=== PATIENT | male | born 1955 | race Caucasian/White ===

== ENCOUNTER 2017-05-01 14:59 | Emergency (ER) | payer BC ==
[~2017-05-01] VITALS: Ht 195.6 cm; Wt 117.5 kg
[2017-05-01 15:02] VITALS: BP 147/76; PULSE 76; RESP 16; TEMP 98.3; O2SAT 94
[2017-05-01] MEDS ORDERED: ASPI-516 CHEW (15:11)
[2017-05-01] MEDS ORDERED: LEXA5TAB PO (15:11)
[2017-05-01] MEDS ORDERED: NAME5TAB2 PO (15:11)
[2017-05-01] MEDS ORDERED: ARIC23TA PO (15:11)
--- NOTE | 2017-05-01 15:52 | PD ---
HPI Chief Complaint: Laceration/Skin Injury Time Seen by Provider: 15:20 Travel History International Travel<30 days: No Contact w/Intl Traveler<30days: No Traveled to known affect area: No History of Present Illness HPI 61-year-old male here for evaluation of laceration to his left toe and right knee pain. Patient reports he stubbed his toe on a concrete curb and twisted his right knee. Injury occurred prior to arrival. Patient did not fall to the ground. He denies any other injuries. He reports the pain as throbbing and worse with movement and relieved with rest. Tetanus immunization is up-to-date. PFSH Past Medical History Hx Anticoagulant Therapy: Yes (ASA) Dementia: Yes Past Surgical History Cholecystectomy: Yes Social History Alcohol Use: Yes Tobacco Use: No Substance Use: No Allergies-Medications (Allergen,Severity, Reaction): Coded Allergies: Penicillins (Verified Adverse Reaction, Intermediate, GI UPSET, 05/01/17) Reported Meds & Prescriptions Reported Meds & Active Scripts Active Reported Namenda (Memantine) 5 Mg Tab Unknown Dose PO BID Aspirin 81 Mg Chew 81 Mg CHEW DAILY Lexapro (Escitalopram Oxalate) 5 Mg Tab Unknown Dose PO DAILY Aricept (Donepezil) 23 Mg Tab Unknown Dose PO HS Do not split, crushed or chewed. Review of Systems Except as stated in HPI: all other systems reviewed are Neg Physical Exam Narrative GENERAL: Well-nourished, well-developed patient. SKIN: Focused skin assessment warm/dry. HEAD: Normocephalic. EYES: No scleral icterus. No injection or drainage. NECK: Supple, trachea midline. No JVD or lymphadenopathy. CARDIOVASCULAR: Regular rate and rhythm without murmurs, gallops, or rubs. RESPIRATORY: Breath sounds equal bilaterally. No accessory muscle use. GASTROINTESTINAL: Abdomen soft, non-tender, nondistended. MUSCULOSKELETAL: No cyanosis, or edema. Right lower extremity; notable swelling to the anterior aspect of the knee. No deformity. Joint is stable. Moderate Pain with full flexion. 2+ pulses. Brisk cap refill. LEFT foot; 1.5 cm laceration to the distal/medial aspect of the great toe. No foreign body visualized. No bony tenderness. No deformity. Brisk cap refill. Data Data Last Documented VS Vital Signs Date Time Temp Pulse Resp B/P (MAP) Pulse Ox O2 Delivery O2 Flow Rate FiO2 05/01/17 15:02 98.3 76 16 147/76 (99) 94 Orders Orders Knee, Complete (4vws) (05/01/17 ) [facility] Medical Decision Making Medical Screen Exam Complete: Yes Emergency Medical Condition: Yes Differential Diagnosis Toe laceration, right knee sprain, fracture Narrative Course 61-year-old male here with left great toe laceration and right knee pain. Patient stubbed left toe on concrete curb causing laceration. He twisted the right knee but did not fall to the ground. He has no bony tenderness of the left foot do not suspect fracture. Right knee is moderately swollen and patient has pain with full flexion. He reports he has previous injury and meniscal tear to the knee and has chronic pain in the knee. X-ray right knee: No fracture Diagnosis Primary Impression: Laceration of left great toe Qualified Codes: S91.112A - Laceration without foreign body of left great toe without damage to nail, initial encounter Additional Impression: Knee sprain Qualified Codes: S83.90XA - Sprain of unspecified site of unspecified knee, initial encounter Referrals: Primary Care Physician Additional Instructions: Take [id number] Motrin or Tylenol as needed for pain. Do not submerge the wound in water. He may begin showering tomorrow. Washing area daily with soap and water and apply clean dry dressing. Sutures need to be removed in 7-10 days. Disposition: 01 DISCHARGE HOME Condition: Stable Reba Kebede May 01, 2017 15:52
--- NOTE | 2017-05-01 16:09 | RADRPT ---
EXAM DATE/TIME: 05/01/2017 15:46 [facility] COMPARISON: No previous studies available for comparison. INDICATIONS : Fell on curb today, has right knee pain and swelling, pain worse lateral side of knee MEDICAL HISTORY : None. SURGICAL HISTORY : knee surgery ENCOUNTER: Initial ACUITY: 1 day PAIN SCORE: 8/10 LOCATION: Right knee FINDINGS: There does appear to be a moderate right knee joint effusion but I don't see a fracture or subluxatio n. There is moderate to severe medial and patellofemoral and moderate lateral compartment osteoarthritis . CONCLUSION: Osteoarthritis and a nonspecific joint effusion. No fracture demonstrated. Roger Phillips MD on May 01, 2017 at 16:07 Board Certified Radiologist. This report was verified electronically.
== END 2017-05-01 16:37 | disposition home or self-care (01) ==
LOC: PHEFT 14:59
DX: S91.112A Laceration without foreign body of left great toe without damage to nail, initial encounter (principal); S83.91XA Sprain of unspecified site of right knee, initial encounter; X58.XXXA Exposure to other specified factors, initial encounter; F03.90 Unspecified dementia, unspecified severity, without behavioral disturbance, psychotic disturbance, mood disturbance, and anxiety; Z88.0 Allergy status to penicillin; Z79.899 Other long term (current) drug therapy
CPT/HCPCS: 73564; 99283

== ENCOUNTER 2017-05-11 07:42 | Emergency (ER) | payer BC ==
[~2017-05-11] VITALS: Ht 195.6 cm; Wt 117.5 kg
[~2017-05-11 07:42] MED LIST: ARIC23TA PO; ASPI-516 CHEW; LEXA5TAB PO; NAME5TAB2 PO
[2017-05-11 07:45] VITALS: BP 156/74; PULSE 62; RESP 18; TEMP 97.7
--- NOTE | 2017-05-11 07:55 | PD ---
HPI Chief Complaint: Wound/Suture/Staple Re-Check Time Seen by Provider: 07:49 Travel History International Travel<30 days: No Contact w/Intl Traveler<30days: No Traveled to known affect area: No History of Present Illness HPI This patient was back for suture removal. He had laceration of the left great toe 10 days ago and had 5 sutures placed. He is walking on it without pain and it doesn't drain anything. No fever PFSH Past Medical History Hx Anticoagulant Therapy: Yes (ASA) Dementia: Yes Past Surgical History Cholecystectomy: Yes Social History Alcohol Use: Yes Tobacco Use: No Substance Use: No Allergies-Medications (Allergen,Severity, Reaction): Coded Allergies: Penicillins (Verified Adverse Reaction, Intermediate, GI UPSET, 05/11/17) Reported Meds & Prescriptions Reported Meds & Active Scripts Active Reported Namenda (Memantine) 5 Mg Tab Unknown Dose PO BID Aspirin 81 Mg Chew 81 Mg CHEW DAILY Lexapro (Escitalopram Oxalate) 5 Mg Tab Unknown Dose PO DAILY Aricept (Donepezil) 23 Mg Tab Unknown Dose PO HS Do not split, crushed or chewed. Review of Systems General / Constitutional: No: Fever HENT: No: Headaches Cardiovascular: No: Chest Pain or Discomfort Respiratory: No: Cough Physical Exam Narrative Psych: Normal mood and affect. Normal insight and judgment. SKIN: Focused skin assessment reveals no rash or ulcers. Skin is warm and dry. Palpation shows no induration or nodules. Left great toe: [address] There is some residual ecchymosis. There is no tenderness or drainage or sign of infection or dehiscence Data Data Last Documented VS Vital Signs Date Time Temp Pulse Resp B/P (MAP) Pulse Ox O2 Delivery O2 Flow Rate FiO2 05/11/17 07:45 97.7 62 18 156/74 (101) MDM Medical Decision Making Medical Screen Exam Complete: Yes Emergency Medical Condition: Yes Medical Record Reviewed: Yes Differential Diagnosis Laceration repair, suture removal, infection Narrative Course I have reviewed the patient's electronic medical record. Sutures removed. Wound care discussed. Diagnosis Primary Impression: Visit for suture removal Additional Instructions: The patient was advised to follow up with their physician and return if they worsen. Med/Other Pt SpecificInfo: Other Disposition: 01 DISCHARGE HOME Condition: Stable Fred Juarez MD May 11, 2017 07:55
== END 2017-05-11 08:12 | disposition home or self-care (01) ==
LOC: PHED 07:42
DX: Z48.02 Encounter for removal of sutures (principal); Z88.0 Allergy status to penicillin; F03.90 Unspecified dementia, unspecified severity, without behavioral disturbance, psychotic disturbance, mood disturbance, and anxiety; Z79.899 Other long term (current) drug therapy
CPT/HCPCS: 99281

== ENCOUNTER → 2017-07-27 | Outpatient (CLI) | payer BC, MEDICARE ==
[~2017-07-27] MED LIST changes: +ASPI81CH6 CHEW; +CPMMACHINE; +HYDR-3288 PO; +LEVO25TA4 PO; +LEXA20TA PO; +MEMA28CA PO; +WALKER WHEELS/F1 MIS
== END ==
LOC: CPRE 09:53
PROVIDERS: ATTEND Orthopaedic Surgery Sports Medicine
DX: M17.11 Unilateral primary osteoarthritis, right knee (principal)

== ENCOUNTER 2017-08-13 10:30 | Inpatient (IN) | payer BC, MEDICARE ==
[~2017-08-13] VITALS: Ht 195.6 cm; Wt 115.7 kg
[~2017-08-13 10:30] MED LIST changes: -ASPI81CH6 CHEW; -CPMMACHINE; -HYDR-3288 PO; -LEXA5TAB PO; -NAME5TAB2 PO; -WALKER WHEELS/F1 MIS
[2017-08-13] MEDS ORDERED: DEXAMETHASONE SOD PHOS 20 MG/5 ML VIAL ONE (11:06)
[2017-08-13] MEDS ORDERED: ceFAZolin 2 GM PREMIX 50 ML ONE (11:06)
[2017-08-13 11:35] VITALS: PULSE 62
[2017-08-13] MEDS ORDERED: FAT EMULSION 20% INJ 0 ML ONE (11:42)
[2017-08-13] MEDS ORDERED: VANCOMYCIN 1000 MG/NS 250 ML (for <70 kg) IV SCH ×2 (11:45)
[2017-08-13] MEDS ORDERED: POVIDONE IODINE 7.5% SCRUB 118 ML BOTTLE TOPICAL SCH (11:45)
[2017-08-13] MEDS ORDERED: CHLORHEXIDINE GLUCONATE 4% SOLN 120 ML BTL TOPICAL SCH (11:45)
[2017-08-13] MEDS ORDERED: MIDAZOLAM HCL 2 MG/2 ML VIAL ONE (11:54)
[2017-08-13] MEDS ORDERED: BUPIVACAINE LIPOSOME PF 1.3% 20 ML VIAL ONE (11:55)
[2017-08-13] MEDS ORDERED: SODIUM CHLORIDE 0.9% INJ 100 ML ONE (11:59)
[2017-08-13] MEDS ORDERED: SODIUM CHLORIDE 0.9% IV SCH (12:00)
[2017-08-13] MEDS ORDERED: ROPIVACAINE PERI-ARTICULAR INJECTION. P-ARTICULR SCH ×5 (12:00)
[2017-08-13] MEDS ORDERED: TRANEXAMIC ACID IV SCH (12:00)
[2017-08-13] MEDS ORDERED: CHLORHEXIDINE GLUCONATE 2 % 1 PACK (2 CLOTHS) TOPICAL PRN (12:00)
[2017-08-13] MEDS ORDERED: LACTATED RINGER'S 1000 ML INJ 1,000 ML IV ONE (12:00)
[2017-08-13] MEDS ORDERED: LIDOCAINE HCL 1% PF 5 ML SYRINGE OTHER ONE (12:00)
[2017-08-13] MEDS ORDERED: LACTATED RINGER'S 1000 ML IV PRN (12:00)
[2017-08-13] MEDS ORDERED: METOPROLOL TARTRATE 25 MG TAB PO PRN (12:00)
[2017-08-13] MEDS ORDERED: CLINDAMYCIN 900 MG/NS 100 ML IV SCH ×2 (12:00)
[2017-08-13] MEDS ORDERED: NEOSTIGMINE 5 MG/5 ML SYRINGE IV PUSH ONE (12:00)
[2017-08-13] MEDS ORDERED: ePHEDrine/NS 25 MG/5 ML SYRINGE IV ONE (12:00)
[2017-08-13] MEDS ORDERED: DEXAMETHASONE SOD PHOS 20 MG/5 ML VIAL IV ONE (12:00)
[2017-08-13] MEDS ORDERED: DEXAMETHASONE SOD PHOS 4 MG/ML VIAL IV ONE (12:00)
[2017-08-13] MEDS ORDERED: POVIDONE IODINE 5% (ANTISEPSIS KIT) 4 APPLICATIONS EACH NARE PRN (12:00)
[2017-08-13] MEDS ORDERED: TRANEXAMIC PERI-ARTICULAR 3,000 MG/NS 100 ML P-ARTICULR SCH ×2 (12:00)
[2017-08-13] MEDS ORDERED: ROCURONIUM INJ 50 MG/5 ML SYRINGE IV PUSH ONE (12:00)
[2017-08-13] MEDS ORDERED: SODIUM CHLORID 0.9% 500 ML IV PRN (12:00)
[2017-08-13] MEDS ORDERED: PROPOFOL 200 MG/20 ML AMP IV ONE (12:00)
[2017-08-13] MEDS ORDERED: ONDANSETRON HCL 4 MG/2 ML VIAL IV PUSH ONE (12:00)
[2017-08-13] MEDS ORDERED: GLYCOPYRROLATE 1 MG/5 ML SYRINGE IV PUSH ONE (12:00)
[2017-08-13] MEDS ORDERED: GENTAMICIN SULFATE 80 MG/2 ML VIAL ONE (12:20)
[2017-08-13] MEDS ORDERED: VANCOMYCIN 1 GM/200 ML INJ 200 ML IV SCH (12:30)
[2017-08-13] MEDS ORDERED: ASPI81CH6 CHEW (12:39)
[2017-08-13] MEDS ORDERED: HYDR-3288 PO (12:39)
[2017-08-13] MEDS ORDERED: ceFAZolin 2 GM PREMIX 50 ML IV SCH (12:45)
[2017-08-13] MEDS ORDERED: DEXAMETHASONE SOD PHOS 20 MG/5 ML VIAL IV SCH (12:45)
[2017-08-13] MEDS ORDERED: ONDANSETRON HCL 4 MG/2 ML VIAL IVP PRN (13:00)
[2017-08-13] MEDS ORDERED: Post-op Orders (for Pharmacy) XX ONE (13:00)
[2017-08-13] MEDS ORDERED: ACETAMINOPHEN/HYDROcodone 325 MG/7.5 MG TAB PO PRN (13:00)
[2017-08-13] MEDS ORDERED: MORPHINE SULFATE 4 MG/ML INJ IV PUSH PRN (13:15)
[2017-08-13] MEDS ORDERED: diphenhydrAMINE HCL 50 MG/ML VIAL IV PUSH PRN (13:30)
[2017-08-13] MEDS ORDERED: BISACODYL 10 MG SUPP RECTAL PRN (13:30)
--- NOTE | 2017-08-13 13:34 | PD.CONS ---
[facility] By Dr Wasserman Reason for Consult medical management Primary Care Physician Rodney Okeefe MD Diagnoses: (1) Primary localized osteoarthrosis, lower leg History of Present Illness 61 yo male with PMH of hypothyroidism , OA, dementia, depression. Patient came to same day surgery for Right TKA by Dr Wasserman . The patient was seen in PACU after the surgery . Says pain is controlled. No fever or chills. No n/v/d/c. Review of Systems Except as stated in HPI: all other systems reviewed are Neg Past Family Social History Allergies: Coded Allergies: Penicillins (Verified Adverse Reaction, Intermediate, GI UPSET, 08/13/17) Past Medical History hypothyroidism , OA, dementia, depression Past Surgical History Cholecystectomy Previous right knee surgeries Reported Medications Reported Meds & Active Scripts Active Aspirin Low Dose (Aspirin) 81 Mg Chew 81 Mg CHEW BID 30 Days [place] (Hydrocodone-Acetaminophen) 7.5-325 mg Tab 1-2 Tab PO Q6H PRN Reported Levothyroxine (Levothyroxine Sodium) 25 Mcg Tab 25 Mcg PO DAILY Lexapro (Escitalopram Oxalate) 20 Mg Tab 20 Mg PO DAILY Namenda Xr (Memantine) 28 Mg Caper 28 Mg PO DAILY Aspirin 81 Mg Chew 81 Mg CHEW DAILY Aricept (Donepezil) 23 Mg Tab 23 Mg PO HS Do not split, crushed or chewed. Family History parents with h/o lung cancer, tobaccoism -father Social History EtOH use 4-6 beers daily Denies tobacco or illicit drug use Physical Exam Vital Signs Vital Signs Date Time Temp Pulse Resp B/P (MAP) Pulse Ox O2 Delivery O2 Flow Rate FiO2 08/13/17 11:35 98 Nasal Cannula 2 08/13/17 11:35 62 08/13/17 11:07 97.9 68 18 146/77 (100) 97 Physical Exam GENERAL: This is a well-nourished, well-developed patient, in no apparent distress. SKIN: No rashes, ecchymoses or lesions. Cool and dry. HEAD: Atraumatic. Normocephalic. No temporal or scalp tenderness. EYES: Pupils equal round and reactive. Extraocular motions intact. No scleral icterus. No injection or drainage. ENT: Nose without bleeding, purulent drainage or septal hematoma. Throat without erythema, tonsillar hypertrophy or exudate. Uvula midline. Airway patent. NECK: Trachea midline. No JVD or lymphadenopathy. Supple, nontender, no meningeal signs. CARDIOVASCULAR: Regular rate and rhythm without murmurs, gallops, or rubs. RESPIRATORY: Clear to auscultation. Breath sounds equal bilaterally. No wheezes , rales, or rhonchi. GASTROINTESTINAL: Abdomen soft, non-tender, nondistended. No hepato-splenomegaly , or palpable masses. No guarding. MUSCULOSKELETAL: S/p right knee surgery. Extremities without clubbing, cyanosis , or edema. NEUROLOGICAL: Awake and alert. Cranial nerves II through XII intact. Motor and sensory grossly within normal limits. Five out of 5 muscle strength in all muscle groups. Normal speech. Imaging Last Impressions Knee X-Ray 08/13/17 1237 Signed Impressions: Service Date/Time: Sunday, August 13, 2017 14:58 - CONCLUSION: Status post right total knee arthroplasty. Augustus Nieto MD Assessment and Plan Assessment and Plan 61 yo male with PMH of hypothyroidism , OA, dementia, depression OA right knee S/P right total knee replacement by Dr Wasserman Management per ortho Alcohol use. Patient says he has never had withdrawl symptoms and doesn;t want any meds 4-6 beers daily last drink on Wednesday. Not with withdrawals at this amy Monitor.for withdrawals Chronic medical problems appears stable at this time, monitor. Restart home meds as appropriate. H/o hypothyroidism , dementia, depression DVT ppx scd/teds. chemical ppx per surgeon Thank you for this consultation Discussed Condition With patient, nurse Problem Qualifiers (1) Primary localized osteoarthrosis, lower leg: Qualified Codes: M17.11 - Unilateral primary osteoarthritis, right knee Jaimie Crocker MD Aug 13, 2017 13:34
[2017-08-13] MEDS ORDERED: DO NOT ADM ANY ANTICOAGULANT DRUGS PRN (14:32)
[2017-08-13 14:36] VITALS: PULSE 98
[2017-08-13] MEDS: SODIUM CHLOR 0.9% 1000 ML INJ 1,000 ML IV SCH ×2 (14:45→21:06)
[2017-08-13] MEDS ORDERED: MORPHINE SULFATE 4 MG/ML INJ ONE (14:45)
[2017-08-13] MEDS ORDERED: *morphine SULFATE 10 MG/ML PERIprocedure ONLY ONE (15:40)
--- NOTE | 2017-08-13 15:58 | RADRPT ---
EXAM DATE/TIME: 08/13/2017 14:58 [facility] COMPARISON: KNEE RIGHT COMPLETE (4VWS), May 01, 2017, 15:46. INDICATIONS : Post right total knee. MEDICAL HISTORY : None. SURGICAL HISTORY : Right total knee ENCOUNTER: Initial ACUITY: 1 day PAIN SCORE: 2/10 LOCATION: Right knee FINDINGS: Right total knee arthroplasty is noted. Soft tissue emphysema is present as well as a small air-fluid level in suprapatellar region. No fractures. CONCLUSION: Status post right total knee arthroplasty. Augustus Nieto MD on August 13, 2017 at 15:57 Board Certified Radiologist. This report was verified electronically.
--- NOTE | 2017-08-13 16:22 | HHI.DCPOC ---
Discharge Care Plan Diagnosis: (1) Primary localized osteoarthrosis, lower leg Your Health Problems Are: Difficulty with ADL Goals to Promote Your Health * To prevent worsening of your condition and complications * To maintain your health at the optimal level Directions to Meet Your Goals Take your medications as prescribed Follow your dietary instruction Follow activity as directed Keep your appointments as scheduled Take your immunizations and boosters as scheduled If your symptoms worsen call your PCP, if no PCP go to Urgent Care Center or Emergency Room Smoking is Dangerous to Your Health. Avoid second hand smoke Call the 24-hour hour crisis hotline for domestic abuse at Justin Willis Aug 13, 2017 16:22
--- NOTE | 2017-08-13 16:22 | HHI.FF ---
Face to Face Verification Diagnosis: (1) Primary localized osteoarthrosis, lower leg Physical Therapy Gait training, Safety evaluation, Transfer training, bed to chair Knee: Total knee, Protocol: Right, Full weight bearing Right LE Weight Bearing: WB as tolerated Nursing RN: 3 days/week x 2 weeks Nursing: Dressing changes Dressing Changes: Daily dressing change I have seen patient Lewis Garcia on 08/13/17. My clinical findings support the need for the requested home health care services because: Limited ability to care for self High risk of falls I certify that my clinical findings support that this patient is homebound because: Post-op weakness Unsteady gait/balance Justin Willis Aug 13, 2017 16:22
[2017-08-13] MEDS ORDERED: CPMMACHINE (16:23)
[2017-08-13] MEDS ORDERED: WALKER WHEELS/F1 MIS (16:23)
--- NOTE | 2017-08-13 16:24 | PD.ORT.PN ---
Objective Vitals Vital Signs Date Time Temp Pulse Resp B/P (MAP) Pulse Ox O2 Delivery O2 Flow Rate FiO2 08/13/17 11:35 98 Nasal Cannula 2 08/13/17 11:35 62 08/13/17 11:07 97.9 68 18 146/77 (100) 97 I/O 08/12/17 08/12/17 08/12/17 08/13/17 08/13/17 08/13/17 07:00 15:00 23:00 07:00 15:00 23:00 Intake Total 1700 ml Output Total 350 ml Balance 1350 ml Intake IV Total 1700 ml Output Urine Total 100 ml Estimated Blood Loss 250 ml Imaging Last 24 hours Impressions Knee X-Ray 08/13/17 1237 Signed Impressions: Service Date/Time: Sunday, August 13, 2017 14:58 - CONCLUSION: Status post right total knee arthroplasty. Augustus Nieto MD Assessment & Plan Ortho Post Op Day #: 0 Problem List: Assessment and Plan s/p R TKA POD#0 wbat ok to maintain dressing unless saturated lovenox, d/c on [id number] d/c planning home vs snf rx in chart f/up dr. tee 2 weeks Justin Willis Aug 13, 2017 16:24
[2017-08-13 17:05] VITALS: BP 107/61; PULSE 79; RESP 18; TEMP 97.5; O2SAT 94
[2017-08-13] MEDS: ACETAMINOPHEN/HYDROcodone 325 MG/7.5 MG TAB PO PRN ×2 (18:38→23:57)
--- NOTE | 2017-08-13 19:10 | MP ---
cc: Justin Wasserman MD, Jeffrey W MD DATE OF OPERATION: 08/13/2017 PREOPERATIVE DIAGNOSIS: Right knee osteoarthritis. POSTOPERATIVE DIAGNOSIS: Right knee osteoarthritis. PROCEDURE: Right total knee arthroplasty. SURGEON: Liborio Wasserman MD ANTIQUE CLOCK REPAIRER: DARRIAN Robin ANESTHESIA: General with a femoral nerve adductor canal block. ESTIMATED BLOOD LOSS: 250 mL. TOURNIQUET TIME: 32 minutes at 250 mmHg. COMPLICATIONS: None. IMPLANTS USED: DePuy Attune size 9 posterior stabilized femoral component, size 9 rotating platform tibial baseplate, size 6 mm polyethylene tibial insert, size 41 patella. INDICATIONS: This patient is a 61-year-old with history of severe end-stage osteoarthritis involving the right knee. He has severe disabling pain with standing, walking, ambulation, weight bearing activities and severe pain at rest. His pain has been progressive and does interfere with activities of daily living. He has failed greater than 3 months of nonoperative conservative treatment to include medication therapy, injections, ambulatory assistive aids, home exercise program and activity modification. The patient is not overweight. X-ray of the right knee reveals severe end-stage osteoarthritis, [id number] joint space narrowing, subchondral sclerosis, subchondral osteophyte formation, varus deformity and subluxation. The patient was counseled on risks, benefits and alternatives to a total knee arthroplasty. The risks were discussed which include but are not limited to anesthesia, bleeding, infection, damage to nerves, blood vessels, pain, stiffness, failure of components, blood clots, pulmonary embolism and even . Patient's pain is severe. He favors the benefits over the risks. He did wish to proceed with surgery. PROCEDURE IN DETAIL: Written consent was obtained. The patient was identified by name, taken to the operating room and placed supine on the operating room table. General anesthesia was administered as well as 900 mg of IV clindamycin and 1 g of IV vancomycin. A well-padded tourniquet was placed on the right thigh. The right lower extremity was prepped and draped using isopropyl alcohol, Hibiclens solution and ChloraPrep solution. After a timeout was performed, an Esmarch bandage was used to exsanguinate the right lower extremity and tourniquet inflated 250 mmHg. A longitudinal incision was made over the anterior aspect of the right knee. A medial parapatellar arthrotomy was performed and the patella was everted. Patellar resection guide was used to resect 9 mm of patella. A size 41 mm guide was placed. Three drill holes were placed. The 41 mm trial fit well. Attention was turned to the femur where an intramedullary guidewire was placed and the distal femoral guide was set to remove 11 mm of distal femur 5 degrees off the anatomic valgus axis alignment. An oscillating saw was used to performed the distal femoral cut. Attention was turned to the tibia where an extramedullary tibial guide was set to remove 6 mm at the lowest portion of the medial tibial plateau. The tibial guide was pinned in place and tibia cut was performed. A 5 mm spacer block showed full extension. Attention was turned back to the femur where the AP sizing block measured a size 9. The anterior reference 3-degree external rotation guide was used to pin a size [address] The anterior, posterior and chamfer cuts were performed. A size 9 PCL box guide was pinned in place and the PCL was box cut with an oscillating saw. The medial and lateral meniscus remnants were removed as well as bone and soft tissue debris from posterior portion of the knee. A size 9 tibial base plate was pinned in place and tibia was drilled and punched. Trial components were evaluated and final components cemented in place. With the current components, the leg achieved full extension at 0 degrees and flexion 140. No evidence of tibial lift off, varus-valgus balance appeared appropriate and symmetric and the patella was noted to track centrally. The tourniquet was deflated. Bovie cautery was used for hemostasis. The knee was thoroughly irrigated with pulse lavage antibiotic impregnated solution. The arthrotomy incision was closed with #1 Vicryl suture, subcutaneous layer with 2-0 Vicryl suture, skin was closed with Dermabond. Sterile dressings were applied. Patient tolerated the procedure well with no intraoperative complications noted. Garret Willis, physician captain's assistant certified, was present during the entire procedure to include patient positioning and the procedure itself. The medical necessity of a physician captain's assistant was indicated in this case due to the complexity of the procedure. He assisted with appropriate manipulation of the leg and also retraction of muscle, tendon, bone and neurovascular structures. He assisted with preparation of bone and also implantation of the prosthetic replacement. MD PIOTR Lui/SA/rh , 02:16 PM , 06:52 PM
[2017-08-13 20:00] VITALS: BP 104/54; PULSE 66; RESP 18; TEMP 97.2; O2SAT 95
[2017-08-13] MEDS ORDERED: ZOLPIDEM TARTRATE 5 MG TAB PO PRN (21:00)
[2017-08-13] MEDS ORDERED: DONEPEZIL HCL 23 MG TAB PO SCH (21:00)
[2017-08-13] MEDS: VANCOMYCIN INJ 1,000 MG in SODIUM CHLOR 0.9% 250 ML INJ 250 ML IV SCH (23:55)
[2017-08-14] VITALS: BP 117/59; PULSE 64; RESP 18; TEMP 96.3; O2SAT 95
[2017-08-14] MEDS: SODIUM CHLOR 0.9% 1000 ML INJ 1,000 ML IV SCH ×2 (03:11→09:50)
[2017-08-14 04:00] VITALS: BP 119/56; PULSE 65; RESP 18; TEMP 96.3; O2SAT 96
[2017-08-14] MEDS: ACETAMINOPHEN/HYDROcodone 325 MG/7.5 MG TAB PO PRN ×3 (05:54→13:55)
[2017-08-14] MEDS ORDERED: LEVOTHYROXINE SODIUM 25 MCG TAB PO SCH (06:00)
[2017-08-14 06:59] LABS: HEMATOCRIT 33.2 % (39.0-51.0); HEMOGLOBIN 12.2 GM/DL (13.0-17.0); MEAN CELL VOLUME 103.6 FL (80.0-100.0); MEAN PLATELET VOLUME 8.6 FL (7.0-11.0); PLATELET COUNT 84 TH/MM3 (150-450); RED BLOOD COUNT 3.21 MIL/MM3 (4.50-5.90); RED CELL DISTRIBUTION WIDTH 12.1 % (11.6-17.2); WHITE BLOOD COUNT 7.6 TH/MM3 (4.0-11.0)
[2017-08-14 07:13] LABS: MEAN CORPUSCULAR HGB CONC 36.7 % (32.0-36.0)
[2017-08-14 07:27] LABS: BICARBONATE 25.4 MEQ/L (21.0-32.0); CALCIUM 8.4 MG/DL (8.5-10.1); CREATININE 0.92 MG/DL (0.60-1.30)
[2017-08-14 07:33] VITALS: BP 107/60; PULSE 59; RESP 18; TEMP 96.8; O2SAT 97
--- NOTE | 2017-08-14 07:41 | HHI.PR ---
Subjective Remarks In bed says pain is controlled by meds. No n/v/d/c. Deeis chest pain. He is not having any EtOH withdrawals. Objective Vitals Vital Signs Date Time Temp Pulse Resp B/P (MAP) Pulse Ox O2 Delivery O2 Flow Rate FiO2 08/14/17 07:33 96.8 59 18 107/60 (76) 97 08/14/17 04:00 96.3 65 18 119/56 (77) 96 08/14/17 00:00 96.3 64 18 117/59 (78) 95 08/13/17 20:00 97.2 66 18 104/54 (71) 95 08/13/17 17:05 97.5 79 18 107/61 (76) 94 08/13/17 16:00 80 13 134/57 (82) 94 Nasal Cannula 2 08/13/17 15:30 82 12 119/58 (78) 94 Nasal Cannula 2 08/13/17 15:15 89 14 128/61 (83) 94 Nasal Cannula 2 08/13/17 15:00 85 14 125/60 (81) 96 Nasal Cannula 2 08/13/17 14:45 91 13 126/62 (83) 96 Nasal Cannula 2 08/13/17 14:36 98 08/13/17 14:36 98.3 98 12 147/71 (96) 97 Nasal Cannula 2 08/13/17 11:35 98 Nasal Cannula 2 08/13/17 11:35 62 08/13/17 11:07 97.9 68 18 146/77 (100) 97 I/O 08/13/17 08/13/17 08/13/17 08/14/17 08/14/17 08/14/17 07:00 15:00 23:00 07:00 15:00 23:00 Intake Total 1700 ml 480 ml 2030 ml Output Total 350 ml 500 ml 600 ml Balance 1350 ml -20 ml 1430 ml Intake Oral 480 ml 480 ml IV Total 1700 ml 1550 ml Output Urine Total 100 ml 500 ml 600 ml Estimated Blood Loss 250 ml # Bowel Movements 0 0 Result Diagram: 08/14/17 0532 08/14/17 0532 Imaging Last Impressions Knee X-Ray 08/13/17 1237 Signed Impressions: Service Date/Time: Sunday, August 13, 2017 14:58 - CONCLUSION: Status post right total knee arthroplasty. Augustus Nieto MD Objective Remarks GENERAL: This is a well-nourished, well-developed patient, in no apparent distress. CARDIOVASCULAR: Regular rate and rhythm without murmurs, gallops, or rubs. RESPIRATORY: Clear to auscultation. Breath sounds equal bilaterally. No wheezes , rales, or rhonchi. GASTROINTESTINAL: Abdomen soft, non-tender, nondistended. No hepato-splenomegaly , or palpable masses. No guarding. MUSCULOSKELETAL: S/p right knee surgery. Extremities without clubbing, cyanosis , or edema. NEUROLOGICAL: Awake and alert. Cranial nerves II through XII intact. Motor and sensory grossly within normal limits. Five out of 5 muscle strength in all muscle groups. Normal speech. A/P Problem List: (1) Primary localized osteoarthrosis, lower leg ICD Code: M17.10 - Unilateral primary osteoarthritis, unspecified knee Assessment and Plan 61 yo male with PMH of hypothyroidism , OA, dementia, depression OA right knee S/P right total knee replacement by Dr Wasserman Management per ortho Alcohol use. Patient says he has never had withdrawal symptoms and doesn't want any meds. Drinks 4-6 beers daily last drink on Wednesday. Not with withdrawals at this amy Monitor for withdrawals. Macrocytic anemia 2/2 EtOH related. Start thiamine and folate, MVT. Discused with the patien Counselled . He also follows with Dr Frausto oncology as OP as he has thrombocytopenia, , PLT are stable and no bleeding./ H/H stable. Chronic medical problems appears stable at this time, monitor. Restart home meds as appropriate. H/o hypothyroidism , dementia, depression DVT ppx scd/teds. chemical ppx per surgeon Thank you for this consultation Discussed Condition With patient, nurse Problem Qualifiers (1) Primary localized osteoarthrosis, lower leg: Qualified Codes: M17.11 - Unilateral primary osteoarthritis, right knee Jaimie Crocker MD Aug 14, 2017 07:41
[2017-08-14] MEDS ORDERED: FOLIC ACID 1 MG TAB PO ONE (07:45)
[2017-08-14] MEDS ORDERED: MULTIVITAMIN TAB PO ONE (07:45)
[2017-08-14] MEDS ORDERED: THIAMINE HCL 100 MG TAB PO ONE (07:45)
[2017-08-14] MEDS ORDERED: FOLIC ACID 1 MG TAB PO SCH (09:00)
[2017-08-14] MEDS ORDERED: MULTIVITAMIN TAB PO SCH (09:00)
[2017-08-14] MEDS ORDERED: MEMANTINE HCL 10 MG TAB PO SCH (09:00)
[2017-08-14] MEDS ORDERED: THIAMINE HCL 100 MG TAB PO SCH (09:00)
[2017-08-14] MEDS ORDERED: ESCITALOPRAM OXALATE 20 MG TAB PO SCH (09:00)
[2017-08-14 11:30] VITALS: BP 121/50; PULSE 67; RESP 16; TEMP 97.2; O2SAT 97
[2017-08-14] MEDS: VANCOMYCIN INJ 1,000 MG in SODIUM CHLOR 0.9% 250 ML INJ 250 ML IV SCH (11:38)
[2017-08-14] MEDS ORDERED: ENOXAPARIN SODIUM 40 MG/0.4 ML SYRINGE SQ SCH (13:30)
[2017-08-14] MEDS ORDERED: MULTIVITAMINS/MINERALS THERAPEUTIC TAB PO SCH (21:00)
[2017-08-14] MEDS ORDERED: DOCUSATE SODIUM 100 MG CAP PO SCH (21:00)
== END 2017-08-14 15:18 | disposition home health service (06) | DRG 470 ==
LOC: HSDC 10:30 → HSDI 12:38 → N06B 17:09
PROVIDERS: ADMIT Orthopaedic Surgery Sports Medicine; ATTEND Orthopaedic Surgery Sports Medicine
PROC: 3E0T3BZ Introduction of Anesthetic Agent into Peripheral Nerves and Plexi, Percutaneous Approach (ICD-10-PCS; 2017-08-13)
PROC: 0SRC0J9 Replacement of Right Knee Joint with Synthetic Substitute, Cemented, Open Approach (ICD-10-PCS; principal; 2017-08-13 12:30)
DX: M17.11 Unilateral primary osteoarthritis, right knee (principal); D69.6 Thrombocytopenia, unspecified; F03.90 Unspecified dementia, unspecified severity, without behavioral disturbance, psychotic disturbance, mood disturbance, and anxiety; F32.9 Major depressive disorder, single episode, unspecified; E03.9 Hypothyroidism, unspecified; D53.9 Nutritional anemia, unspecified; I10 Essential (primary) hypertension; Z87.891 Personal history of nicotine dependence
CPT/HCPCS: 73560; 80048; 85027; 86850; 86900; 86901; 94150; C1776; C9290; J0690; J0735; J1100; J1580; J1650; J1885; J2250; J2270; J2405; J2710; J2795; J3010; J3370; J7030; J7050; J7120; L1830